=== PATIENT | female | born 2005 | race Hispanic/Latino ===

== ENCOUNTER 2023-04-27 23:26 | Emergency (ER) | payer OTHER ==
[~2023-04-27] VITALS: Ht 157.5 cm; Wt 106.1 kg
[2023-04-27 23:28] VITALS: BP 147/78; PULSE 88; RESP 18
[2023-04-28] MEDS ORDERED: PRED20TA3 PO (01:49)
[2023-04-28] MEDS ORDERED: IBUP-2076 PO (01:49)
[2023-04-28] MEDS ORDERED: CYCL-309 PO (01:49)
[2023-04-28] MEDS ORDERED: KETOROLAC 60 MG VIAL (30MG/ML) IM ONE (02:00)
[2023-04-28] MEDS ORDERED: CYCLOBENZAPRINE HCL 10 MG TABLET PO ONE (02:00)
== END 2023-04-28 02:28 | disposition home or self-care (01) ==
LOC: EDH 23:26
DX: M54.50 Low back pain, unspecified (principal)
CPT/HCPCS: 99283; 96372; J1885